=== PATIENT | male | born 1950 | race Caucasian/White ===

== ENCOUNTER 2023-10-19 07:36 | Day surgery (SDC) | payer OTHER ==
[2023-10-14 12:13] VITALS: BMI 25.8
[2023-10-19] MEDS ORDERED: ceFAZolin SODIUM 1 GM VIAL ONE ×3 (08:43→11:16)
[2023-10-19] MEDS ORDERED: ONDANSETRON 4 MG/2 ML VIAL ONE (08:43)
[2023-10-19] MEDS ORDERED: PROPOFOL 40 ML ONE ×2 (08:43→12:12)
[2023-10-19] MEDS ORDERED: MIDAZOLAM HCL 2 MG/2 ML SINGLE DOSE VIAL ONE (08:43)
[2023-10-19] MEDS ORDERED: DEXAMETHASONE SOD PHOSPHATE 4 MG/1 ML VIAL ONE (08:43)
[2023-10-19] MEDS ORDERED: LIDOCAINE 1%/EPI 1:100000 (20 ML MULTI DOSE VIAL) ONE (11:02)
[2023-10-19] MEDS ORDERED: POVIDONE-IODINE 5% OPHTHALMIC PREP 30 ML SOLUTION ONE (11:02)
[2023-10-19] MEDS ORDERED: ERYTHROMYCIN 0.5% OPHTHALMIC OINTMENT 3.5 GM TUBE ONE ×2 (11:02→13:25)
[2023-10-19] MEDS ORDERED: TETRACAINE 0.5% OPHTH SOLN 2 ML BOTTLE ONE (11:12)
[2023-10-19] MEDS ORDERED: PHENYLEPHRINE 2.5% OPHTH SOLN 15 ML BOTTLE ONE (13:23)
[2023-10-19] MEDS ORDERED: PHENYLEPHRINE/KETOROLAC 4 ML VIAL IO ONE (13:23)
[2023-10-19] MEDS ORDERED: FENTANYL CITRATE/PF 50 MCG/ML VIAL ONE (13:32)
[2023-10-19] MEDS ORDERED: ONDANSETRON 4 MG/2 ML VIAL IVPUSH PRN (13:34)
[2023-10-19] MEDS ORDERED: oxyCODONE HCL 5 MG TABLET PO PRN (13:34)
[2023-10-19] MEDS ORDERED: LACTATED RINGERS SOLUTION 1,000 ML IV SCH (13:45)
[2023-10-19 14:49] VITALS: RESP 18; TEMP 97.2
[2023-10-19 15:04] VITALS: BP 140/74; PULSE 72
== END 2023-10-19 15:20 | disposition home or self-care (01) ==
LOC: FASU 07:36
PROVIDERS: ATTEND Ophthalmology
PROC: 08SN0ZZ Reposition Right Upper Eyelid, Open Approach (ICD-10-PCS; principal; 2023-10-19 12:04)
DX: H02.421 Myogenic ptosis of right eyelid (principal)
CPT/HCPCS: 88304-TC; 94760; J1097

== ENCOUNTER 2025-01-30 06:09 | Day surgery (SDC) | payer OTHER ==
[2025-01-24 14:21] VITALS: BMI 25.8
[2025-01-30] MEDS ORDERED: BSS (NA/CA/MG/K) BALANCED SALT SOLUTION OPHTH SOLN 15 ML BOTTLE ONE (07:28)
[2025-01-30] MEDS ORDERED: POVIDONE-IODINE 5% OPHTHALMIC PREP 30 ML SOLUTION ONE (07:28)
[2025-01-30] MEDS ORDERED: ERYTHROMYCIN 0.5% OPHTHALMIC OINTMENT 3.5 GM TUBE ONE (07:28)
[2025-01-30] MEDS ORDERED: TETRACAINE 0.5% OPHTH SOLN 2 ML BOTTLE ONE (07:28)
[2025-01-30] MEDS ORDERED: OXYMETAZOLINE 0.05% NASAL SOLUTION 15 ML BOTTLE NS ONE (07:28)
[2025-01-30] MEDS ORDERED: LIDOCAINE 1%/EPI 1:100000 (20 ML MULTI DOSE VIAL) ONE (07:29)
[2025-01-30] MEDS ORDERED: BUPIVACAINE HCL/PF 0.5% (5MG/ML) 10 ML VIAL ONE (07:29)
[2025-01-30] MEDS ORDERED: THROMBIN (BOVINE) 5,000 UNIT VIAL TP ONE (07:29)
[2025-01-30] MEDS ORDERED: ETOMIDATE 20 MG/10 ML VIAL IVPUSH ONE (07:33)
[2025-01-30] MEDS ORDERED: ROCURONIUM BROMIDE 50 MG/5 ML SYRINGE ONE (07:33)
[2025-01-30] MEDS ORDERED: PROPOFOL 20 ML ONE (07:33)
[2025-01-30] MEDS ORDERED: SUCCINYLCHOLINE CHLORIDE 200 MG/10 ML SYRINGE ONE (07:34)
[2025-01-30] MEDS ORDERED: SUGAMMADEX SODIUM 200 MG/2 ML VIAL ONE (08:57)
[2025-01-30] MEDS ORDERED: FENTANYL CITRATE/PF 50 MCG/ML VIAL ONE (10:18)
[2025-01-30] MEDS: ONDANSETRON 4 MG/2 ML VIAL IVPUSH PRN (10:25)
[2025-01-30] MEDS ORDERED: MITOMYCIN 0.02% EYE DROPS - 2ML VIAL IO ONE (13:30)
[2025-01-30 13:37] VITALS: PULSE 57; RESP 16; TEMP 97
[2025-01-30 13:44] VITALS: BP 167/73
== END 2025-01-30 11:40 | disposition home or self-care (01) ==
LOC: FASU 06:09
PROVIDERS: ATTEND Ophthalmology
PROC: 081X0J3 Bypass Right Lacrimal Duct to Nasal Cavity with Synthetic Substitute, Open Approach (ICD-10-PCS; principal; 2025-01-30 08:26)
DX: H04.511 Dacryolith of right lacrimal passage (principal)
CPT/HCPCS: 88304-TC; 94760